=== PATIENT | male | born 1995 | race Caucasian/White ===

== ENCOUNTER → 2021-07-14 09:42 | Outpatient (CLI) | payer MEDICARE, SELFPAY ==
[2021-07-14 12:46] LABS: Lithium 0.4 mmol/L (0.6-1.2)
== END ==
PROVIDERS: Referring Provider Psychiatry & Neurology Psychiatry; Visit Provider Psychiatry & Neurology Psychiatry
DX: G47.09 Other insomnia (principal); F41.1 Generalized anxiety disorder; F31.60 Bipolar disorder, current episode mixed, unspecified; F41.0 Panic disorder [episodic paroxysmal anxiety]; F43.12 Post-traumatic stress disorder, chronic; Z51.81 Encounter for therapeutic drug level monitoring
CPT/HCPCS: 36415; 80178; 99214